=== PATIENT | female | born 1955 | race African-American/Black ===

== ENCOUNTER 2021-12-20 16:47 | Emergency (ER) | payer OTHER ==
[2021-12-20] MEDS ORDERED: Morphine 4 MG/ML VIAL ONE (17:28)
[2021-12-20 17:39] LABS: #Monocytes 0.5 10x3/uL (0.0-1.1); #Neutrophils 3.4 10x3/uL (1.5-8.4); %Basophils 0.2 % (0.0-2.0); %Eosinophils 0.6 % (0.0-6.0); %Lymphocytes 35.4 % (18.0-47.0); %Monocytes 8.7 % (0.0-10.0); %Neutrophils 54.8 % (40.0-75.0); Hemoglobin 10.7 g/dL (12.0-15.5); Mean Corpuscular Hemoglobin 27.4 pg (27.0-33.0); Mean Corpuscular Volume 85.4 fl (81.6-98.3); Mean Platelet Volume 9.8 fl (7.4-10.4); Platelet Count 312 10x3/uL (150-450); RBC Distribution Width 15.2 % (11.5-14.5); Red Blood Cell (RBC) Count 3.91 10x6/uL (3.90-5.03); White Blood Cell (WBC) Count 6.2 10x3/uL (3.5-10.5)
[2021-12-20 17:47] LABS: INR-International Normal Ratio 0.9; PTT 24.7 sec (22.0-33.0); Prothrombin Time 10.3 sec (9.5-12.1)
[2021-12-20 17:49] LABS: ALT (SGPT) 14 U/L (8-55); AST (SGOT) 14 U/L (5-34); Albumin 4.4 g/dL (3.4-4.8); Alkaline Phosphatase 65 U/L (40-110); Anion Gap 14 mmol/L (10-20); BUN (Urea Nitrogen) 20 mg/dL (9.8-20.1); Bilirubin, Total 0.2 mg/dL (0.2-1.2); CK (CPK) 323 U/L (29-168); Calc. Creatinine Clearance 0 mL/min (70-130); Calcium 9.3 mg/dL (7.8-10.44); Carbon Dioxide 26 mmol/L (23-31); Chloride 104 mmol/L (98-107); Globulin 3.5 g/dL (2.4-3.5); Glucose 95 mg/dL (80-115); Lipase 48 U/L (8-78); Potassium 3.7 mmol/L (3.5-5.1); Protein, Total 7.9 g/dL (5.8-8.1); Sodium 140 mmol/L (136-145)
== END 2021-12-20 18:55 | disposition home or self-care (01) ==
LOC: CSHERS 16:47
DX: T14.8XXA Other injury of unspecified body region, initial encounter (principal); E78.5 Hyperlipidemia, unspecified; I10 Essential (primary) hypertension; J45.909 Unspecified asthma, uncomplicated; V43.52XA Car driver injured in collision with other type car in traffic accident, initial encounter
CPT/HCPCS: 70450; 71260; 72125; 74177; 80053; 82550; 83690; 85025; 85610; 85730; 96374; J2270

== ENCOUNTER 2022-05-30 13:28 | Outpatient (CLI) | payer OTHER | END 2022-05-30 13:29 | disposition home or self-care (01) | LOC: CSHLAB 13:28 | PROVIDERS: ATTEND Internal Medicine Gastroenterology | DX: Z20.822 Contact with and (suspected) exposure to COVID-19 (principal); R10.9 Unspecified abdominal pain | CPT/HCPCS: 87811 ==

== ENCOUNTER 2022-06-02 10:25 | Day surgery (SDC) | payer OTHER ==
[2022-05-31 14:27] VITALS: BMI 36.3
[~2022-06-02 10:25] MED LIST: Ketamine 50 MG/ML (10ML VIAL) ONE
[2022-06-02] MEDS ORDERED: Lidocaine 1% MPF 2 ML VIAL ONE (10:39)
[2022-06-02] MEDS ORDERED: PROPOFOL 40 ML ONE (10:53)
== END 2022-06-02 11:58 | disposition home or self-care (01) ==
LOC: CSHSDC 10:25
PROVIDERS: ATTEND Internal Medicine Gastroenterology
PROC: 0DB98ZZ Excision of Duodenum, Via Natural or Artificial Opening Endoscopic (ICD-10-PCS; principal; 2022-06-02)
DX: K29.80 Duodenitis without bleeding (principal); K21.9 Gastro-esophageal reflux disease without esophagitis; K30 Functional dyspepsia; I10 Essential (primary) hypertension; E11.9 Type 2 diabetes mellitus without complications; J45.909 Unspecified asthma, uncomplicated; Z20.822 Contact with and (suspected) exposure to COVID-19
CPT/HCPCS: 88305; J2704